=== PATIENT | female | born 1940 | race Caucasian/White ===

== ENCOUNTER → 2017-10-30 09:27 | Outpatient (CLI) | payer MEDICARE, OTHER, SELFPAY ==
--- NOTE | 2017-10-30 09:32 | MM_ITS ---
MM Dig screening mamm BI w/CAD CAD Screening COMPARISON: Outside digital mammograms 10/15/2007 INDICATION: There is no personal or family history of breast cancer TECHNIQUE: Standard CC and MLO images were obtained. R2 CAD reviewed. FINDINGS: Scattered diffuse fibroglandular densities are seen in both breasts. There is arterial calcification bilaterally. There are benign-appearing calcifications in each breast. There is a collection of numerous microcalcifications upper outer quadrant left breast which are likely benign but not seen previously and recommend the patient return for spot compression magnification views for additional evaluation. IMPRESSION: Fibrofatty parenchyma with new collection of microcalcifications left breast BI-RADS Category: 0 Need Additional Imaging Evaluation RECOMMENDED FOLLOW-UP: IMM - IMMEDIATE FOLLOW-UP RECOMMENDED (A letter has been sent to the patient regarding results of the study.)
--- NOTE | 2017-10-30 09:33 | XR_ITS ---
XR DEXA axial skeleton HISTORY: ITS.REASON: OSTEOPENIA ORDERING PHYSICIAN: Mario Pulido MD PATIENT AGE: 77 years COMPARISON: 02/02/2012 FINDINGS: The BMD measured at the Right femoral neck is 0.829 g/cm squared with a T score of -1.5 . This is considered Osteopenic according to the World Health Organization criteria. Fracture risk is Moderate. Treatment is advised. The hip density is essentially unchanged from 02/02/2012 IMPRESSION: Osteopenia with moderate fracture risk. Recommend follow-up exam October 2019
== END ==
PROVIDERS: Family Provider Family Medicine; PCP Family Medicine; Visit Provider Family Medicine
DX: M85.89 Other specified disorders of bone density and structure, multiple sites (principal); N60.19 Diffuse cystic mastopathy of unspecified breast; Z13.820 Encounter for screening for osteoporosis; Z12.31 Encounter for screening mammogram for malignant neoplasm of breast
CPT/HCPCS: 77067; 77080

== ENCOUNTER → 2017-11-16 12:49 | Outpatient (CLI) | payer MEDICARE, OTHER, SELFPAY ==
--- NOTE | 2017-11-16 12:52 | MM_ITS ---
MM Dig mamm DX unilat LT CAD COMPARISON: 10/30/2017 INDICATION: Follow-up abnormal mammogram ORDERING PHYSICIAN: Mario Pulido MD PATIENT AGE: 77 years TECHNIQUE: Magnification views FINDINGS: Cluster of calcifications are noted in the outer aspect of the left breast. These are coarse in nature and are probably benign. Recommend 6 month follow-up to confirm stability IMPRESSION: No convincing evidence of malignancy. Probably benign calcifications BI-RADS Category: 3 Benign Finding Short Term Follow-up RECOMMENDED FOLLOW-UP: 6M - 6 MONTH FOLLOW-UP (A letter has been sent to the patient regarding results of the study.)
== END ==
PROVIDERS: Family Provider Family Medicine; PCP Family Medicine; Visit Provider Family Medicine
DX: R92.8 Other abnormal and inconclusive findings on diagnostic imaging of breast (principal)
CPT/HCPCS: 77065

== ENCOUNTER → 2018-04-20 13:43 | Outpatient (CLI) | payer MEDICARE, OTHER, SELFPAY ==
--- NOTE | 2018-04-20 13:50 | XR_ITS ---
XR hand LT min 3V HISTORY: ITS.REASON: PAIN IN LT THUMB ORDERING PHYSICIAN: Sheri Pink PATIENT AGE: 78 years COMPARISON: None FINDINGS: There are severe osteoarthritic changes of the first metacarpal carpal joint with osteophytes and calcific debris about the joint space and mild lateral subluxation of the first metacarpal. Osteoarthritic changes also involve the scaphotrapezium joint. There are mild osteoarthritic changes of the DIP joint of digits 2 through 5 as well as interphalangeal joint of the thumb. No fracture or dislocation. 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
== END ==
PROVIDERS: PCP Family Medicine; Visit Provider Nurse Practitioner
DX: M79.645 Pain in left finger(s) (principal)
CPT/HCPCS: 73130

== ENCOUNTER → 2018-05-31 13:04 | Outpatient (CLI) | payer MEDICARE, OTHER, SELFPAY ==
--- NOTE | 2018-05-31 13:08 | MM_ITS ---
MM Dig mamm DX unilat LT CAD INDICATION: Follow-up abnormal mammogram ORDERING PHYSICIAN: Mario Pulido MD PATIENT AGE: 78 years COMPARISON: 11/16/2017 TECHNIQUE: Standard images and mag views FINDINGS: Average fibroglandular tissue. A cluster of benign-appearing calcifications is again noted in the outer aspect of the left breast. These do not appear significant change in maintaining a benign morphology. No malignant appearing mass or malignant microcalcification IMPRESSION: No change benign-appearing cluster of calcifications in the left breast laterally. Recommend resume screening mammogram October 2018 BI-RADS Category: 2 Benign Finding(s) RECOMMENDED FOLLOW-UP: 6M - 6 MONTH FOLLOW-UP (A letter has been sent to the patient regarding results of the study.)
== END ==
PROVIDERS: PCP Family Medicine; Visit Provider Family Medicine
DX: R92.8 Other abnormal and inconclusive findings on diagnostic imaging of breast (principal)
CPT/HCPCS: 77065

== ENCOUNTER → 2020-08-27 11:47 | Outpatient (CLI) | payer MEDICARE, OTHER, SELFPAY ==
[2020-08-27 14:09] LABS: Coronavirus 19 IgG Antibody Negative (Negative); Coronavirus 19 IgM Antibody Negative (Negative)
== END ==
PROVIDERS: PCP Family Medicine; Visit Provider Family Medicine
DX: Z20.822 Contact with and (suspected) exposure to COVID-19 (principal)
CPT/HCPCS: 36415; 86328

== ENCOUNTER → 2021-02-28 08:45 | Outpatient (CLI) | payer MEDICARE, OTHER, SELFPAY | PROVIDERS: PCP Family Medicine; Visit Provider Family Medicine | DX: Z20.822 Contact with and (suspected) exposure to COVID-19 (principal) | CPT/HCPCS: U0003 ==